=== PATIENT | female | born 1985 | race African-American/Black ===

== ENCOUNTER 2018-03-03 14:56 | Emergency (ER) | payer MEDICAID, OTHER ==
[2018-03-03] MEDS ORDERED: SODIUM CHLORIDE 0.9% 1,000 ML IV ONE (15:43)
[2018-03-03] MEDS ORDERED: ONDANSETRON 4 MG/2 ML VIAL IVP STA (15:43)
[2018-03-03] MEDS ORDERED: KETOROLAC 60 MG/2 ML VIAL IVP STA (15:43)
[2018-03-03 15:45] LABS: BILIRUBIN,URINE NEGATIVE (NEGATIVE); GLUCOSE, URINE (UA) NEGATIVE (NEGATIVE); KETONES,URINE (UA) NEGATIVE (NEGATIVE); LEUKOCYTE ESTERASE, URINE NEGATIVE (NEGATIVE); NITRITE,URINE NEGATIVE (NEGATIVE); OCCULT BLOOD,URINE SMALL (NEGATIVE); PROTEIN,URINE NEGATIVE (NEGATIVE); UROBILINOGEN,URINE 0.2 (NORMAL) E.U./dL (NORMAL)
--- NOTE | 2018-03-03 15:45 | ED Physician Documentation ---
PD HPI ABD PAIN - Stated complaint Stated Complaint: STOMACH PX/VOMITING - Chief complaint Chief Complaint: Abd Pain - History obtained from History obtained from: Patient - History of Present Illness Timing - onset: How many days ago (2) Timing - duration: Days (2) Timing - details: Gradual onset, Waxing and waning Pain level max: 7 Pain level now: 6 Quality: Aching, Pain Location: Other (R pelvic) Radiation: Other (non-radiating) Improved by: Other (nothing) Worsened by: Other (palpation) Associated symptoms: Nausea (chronic, unchanged.). No: Fever, Vomiting, Hematemesis, Diarrhea, Dizzy, Near syncope / syncope, Vaginal bleeding, Vaginal dc Similar symptoms before: Has not had sx before Recently seen: Not recently seen - Additional information Additional information: LMP 1.5 weeks ago. Review of Systems Constitutional: denies: Fever, Chills Nose: denies: Rhinorrhea / runny nose, Congestion Throat: denies: Sore throat Respiratory: denies: Cough GI: denies: Nausea, Vomiting, Diarrhea Skin: denies: Rash Musculoskeletal: denies: Neck pain, Back pain Neurologic: denies: Headache PD PAST MEDICAL HISTORY - Past Medical History Past Medical History: Yes Cardiovascular: Hypertension, High cholesterol - Past Surgical History Past Surgical History: No - Present Medications Home Medications: Ambulatory Orders Medication Instructions Recorded Confirmed Atorvastatin [Lipitor] 10 mg DAILY 03/03/18 03/03/18 Lansoprazole [Prevacid] 30 mg DAILY 03/03/18 03/03/18 Losartan [Cozaar] 100 mg DAILY 03/03/18 03/03/18 Meloxicam [Mobic] 15 mg PO DAILY PRN #20 tablet 03/03/18 - Allergies Allergies/Adverse Reactions: Allergies Allergy/AdvReac Type Severity Reaction Status Date / Time Sulfa (Sulfonamide AdvReac Severe Hallucinati Verified 03/03/18 15:18 Antibiotics) ons - Living Situation Living Situation: reports: With family Living Arrangement: reports: At home - Social History Does the pt smoke?: No Does the pt have substance abuse?: No - Family History Family history: reports: Non contributory PD ED PE NORMAL - Vitals Vital signs reviewed: Yes - General General: Alert and oriented X 3, No acute distress - HEENT HEENT: Moist mucous membranes - Neck Neck: Supple, no meningeal sign - Cardiac Cardiac: RRR - Respiratory Respiratory: No respiratory distress, Clear bilaterally - Abdomen Abdomen: Soft, Non distended, Other (mild TTP R low pelvic. no tenderness at McBurney's point. no peritoneal signs) - Female Female : Pt declined - Derm Derm: Warm and dry - Neuro Neuro: Alert and oriented X 3 - Psych Psych: Normal mood, Normal affect Results - Vitals Vitals: Vital Signs - 24 hr 03/03/18 03/03/18 15:12 18:06 Temperature 36.4 C L Heart Rate 95 81 Respiratory 19 16 Rate Blood Pressure 165/101 H 144/90 H O2 Saturation 97 98 Oxygen O2 Source Room air - Labs Labs: Laboratory Tests 03/03/18 03/03/18 03/03/18 15:00 15:34 15:34 WBC 7.5 RBC 4.47 Hgb 13.4 Hct 39.6 MCV 88.6 MCH 29.9 MCHC 33.7 RDW 13.6 Plt Count 325 MPV 8.3 Neut # (Auto) 4.7 Lymph # (Auto) 2.2 [place] # (Auto) 0.4 Eos # (Auto) 0.1 Baso # (Auto) 0.1 Absolute Nucleated RBC 0.00 Nucleated RBC % 0.1 Sodium 138 Potassium 3.6 Chloride 106 Carbon Dioxide 24 Anion Gap 8.0 BUN 11 Creatinine 0.8 Estimated GFR (MDRD) 100 Glucose 102 H Calcium 8.9 Total Bilirubin 0.2 AST 26 ALT 29 Alkaline Phosphatase 71 Total Protein 7.3 Albumin 4.1 Globulin 3.2 Albumin/Globulin Ratio 1.3 Lipase 24 Urine Color YELLOW Urine Clarity CLEAR Urine pH 6.0 Ur Specific Agar 1.025 Urine Protein NEGATIVE Urine Glucose (UA) NEGATIVE Urine Ketones NEGATIVE Urine Occult Blood SMALL H Urine Nitrite NEGATIVE Urine Bilirubin NEGATIVE Urine Urobilinogen 0.2 (NORMAL) Ur Leukocyte Esterase NEGATIVE Urine RBC 0-5 Urine WBC 0-3 Ur Squamous Epith Cells NONE SEEN Urine Bacteria None Seen Ur Microscopic Review INDICATED Urine Culture Comments NOT INDICATED Urine HCG, Qual NEGATIVE - Rads (name of study) pelvic US Radiology: Prelim report reviewed, EMP read contemporaneously, See rad report ( Normal pelvic ultrasound. ) PD MEDICAL DECISION MAKING - ED course Complexity details: reviewed results, re-evaluated patient (Soft nontender nondistended on serial exam), considered differential, d/w patient ED course: Patient is a 32-year-old female presents to the emergency department with right pelvic pain. No acute findings on ultrasound other than a dominant R follice and small amount of free fluid. Pain well controlled in the emergency department after a single dose of Toradol. We will continue supportive care and follow-up with her doctor. No evidence of appendicitis. No evidence of ovarian torsion. Patient counseled regarding signs and symptoms for which I believe and urgent re-evaluation would be necessary. Patient with good understanding of and agreement to plan and is comfortable going home at this time This document was made in part using voice recognition software. While efforts are made to proofread this document, sound alike and grammatical errors may occur. - Sepsis Event Vital Signs: Vital Signs - 24 hr 03/03/18 03/03/18 15:12 18:06 Temperature 36.4 C L Heart Rate 95 81 Respiratory 19 16 Rate Blood Pressure 165/101 H 144/90 H O2 Saturation 97 98 Oxygen O2 Source Room air Departure - Departure Disposition: 01 Home, Self Care Clinical Impression: Pelvic pain Condition: Good Instructions: ED Pelvic Pain [facility] Follow-Up: your,doctor in 1 week [Other] Prescriptions: Meloxicam [Mobic] 15 mg PO DAILY PRN #20 tablet PRN Reason: pain Comments: Return if you worsen. The cause of your symptoms is unclear, but may be related to a ruptured ovarian cyst. Discharge Date/Time: 03/03/18 18:56
[2018-03-03 15:49] LABS: CLARITY,URINE CLEAR (CLEAR); HCG UR QUAL NEGATIVE
[2018-03-03 15:50] LABS: BASOPHILS # (AUTO) 0.1 10^3/uL (0.0-0.1); EOSINOPHILS # (AUTO) 0.1 10^3/uL (0.0-0.7); EOSINOPHILS % (AUTO) 0.9 %; HGB - HEMOGLOBIN 13.4 g/dL (12.0-16.0); LYMPHOCYTES # (AUTO) 2.2 10^3/uL (1.5-3.5); LYMPHOCYTES % (AUTO) 29.7 %; MEAN CORPUSCULAR HEMOGLOBIN 29.9 pg (27.0-31.0); MEAN CORPUSCULAR HGB CONC 33.7 g/dL (32.0-36.0); MEAN CORPUSCULAR VOLUME 88.6 fL (81.0-99.0); MEAN PLATELET VOLUME 8.3 fL (7.9-10.8); MONOCYTES # (AUTO) 0.4 10^3/uL (0.0-1.0); MONOCYTES % (AUTO) 5.7 %; NEUTROPHILS # (AUTO) 4.7 10^3/uL (1.5-6.6); NEUTROPHILS % (AUTO) 62.7 %; PLT - PLATELET COUNT 325 10^3/uL (130-450); RED BLOOD COUNT 4.47 10^6/uL (4.20-5.40); RED CELL DISTRIBUTION WIDTH 13.6 % (12.0-15.0); WHITE BLOOD COUNT 7.5 x10^3/uL (4.8-10.8)
[2018-03-03 16:02] LABS: ALBUMIN 4.1 g/dL (3.2-5.5); ALBUMIN/GLOBULIN RATIO 1.3 (1.0-2.2); BILIRUBIN,TOTAL 0.2 mg/dL (0.2-1.0); CALCIUM 8.9 mg/dL (8.5-10.3); CREATININE 0.8 mg/dL (0.4-1.0); TOTAL PROTEIN 7.3 g/dL (6.7-8.2)
[2018-03-03 16:10] LABS: BACTERIA,URINE None Seen /HPF (None Seen); RBC,URINE 0-5 /HPF (0-5); SQUAMOUS EPITHELIAL CELL,UR NONE SEEN (<= Few)
[2018-03-03 18:07] VITALS: BP 144/90
--- NOTE | 2018-03-03 18:08 | Ultrasound Report ---
Reason: R pelvic pain Procedure Date: 03/03/2018 Accession Number: [id number] / [id number] Procedure: US - Pelvic w/Transvag+Doppler Comp CPT Code: FULL RESULT: EXAM: PELVIC ULTRASOUND EXAM DATE: 03/03/2018 05:34 PM. CLINICAL HISTORY: Right pelvic pain. COMPARISON: None. TECHNIQUE: Realtime transabdominal pelvic scan performed to identify the uterus and adnexa and as an overview of other pelvic structures, followed by transvaginal scan to provide greater detail of the uterus and adnexa, with static image documentation. FINDINGS: Uterus: 9.1 x 4.2 x 5.5 cm, volume 109 cc. Anteverted position. Normal overall size and echotexture. Masses: None. Endometrium: 9 mm. Small endometrial cyst noted 0.6 x 0.4 x 0.4 cm. Cervix: Unremarkable. Right Ovary: 4.8 x 2.9 x 2.6 cm, volume 18.9 cc. Normal echotexture and blood flow. Dominant follicle measures 1.7 x 1.4 x 1.2 cm. Left Ovary: 4.3 x 2.7 x 2.8 cm, volume 17 cc. Normal echotexture and blood flow. Free Fluid: Trace amount, likely physiologic. Other: None. IMPRESSION: Normal pelvic ultrasound. RADIA
== END 2018-03-03 18:56 | disposition home or self-care (01) ==
LOC: ED 14:56
DX: R10.2 Pelvic and perineal pain (principal); N83.00 Follicular cyst of ovary, unspecified side; I10 Essential (primary) hypertension
CPT/HCPCS: 36415; 76830; 76856; 80053; 81001; 81003; 81025; 83690; 85025; 87086; 93975; 96361; 96374; 96375; 99283

== ENCOUNTER 2018-05-29 08:22 | Emergency (ER) | payer MEDICAID ==
[2018-05-29 09:18] LABS: HCG,QUALITATIVE BLOOD NEGATIVE
--- NOTE | 2018-05-29 09:43 | ED Physician Documentation ---
History of Present Illness - Stated complaint Stated Complaint: FATIGUE/CONFUSION - Chief complaint Chief Complaint: General - Additonal information Additional information: hx from pt 33 f hx HTN HLD to ED with faitgue and confusion for about 2 weeks sleeping all the time no new meds no travel no sick contacts works as security at [employer] no fever cough NVD urinary sx no WOO CP AP took home HCG and ti was neg concern for CO poisoning Review of Systems Constitutional: denies: Fever, Chills Throat: denies: Sore throat Cardiac: denies: Chest pain / pressure Respiratory: denies: Dyspnea GI: denies: Abdominal Pain, Vomiting, Diarrhea, Bloody / black stool : denies: Now EGA Neurologic: reports: Generalized weakness Endocrine: denies: Easy bruising / bleeding Immunocompromised: denies: Immunocompromised PD PAST MEDICAL HISTORY - Past Medical History Cardiovascular: Hypertension, High cholesterol Respiratory: None Neuro: None Endocrine/Autoimmune: None GI: Cholelithiasis, Other FRONT END DEVELOPER DESIGNER: None : None HEENT: None, Other Psych: None, Other Musculoskeletal: None Derm: None Other Past Medical History: IBS - Past Surgical History Past Surgical History: No General: Cholecystectomy, Colonoscopy Ortho: Other HEENT: Tonsil/Adenoidectomy - Present Medications Home Medications: Ambulatory Orders Medication Instructions Recorded Confirmed Atorvastatin [Lipitor] 10 mg DAILY 03/03/18 03/03/18 Amitriptyline [Elavil] 20 mg PO QPM 05/29/18 05/29/18 Losartan [Cozaar] 100 mg PO DAILY 05/29/18 05/29/18 Omeprazole 20 mg PO 05/29/18 Ondansetron [Zofran Odt] 4 mg PO PRN PRN 05/29/18 05/29/18 - Allergies Allergies/Adverse Reactions: Allergies Allergy/AdvReac Type Severity Reaction Status Date / Time Sulfa (Sulfonamide AdvReac Severe Hallucinati Verified 05/29/18 08:29 Antibiotics) ons - Social History Does the pt smoke?: No Smoking Status: Never smoker Does the pt drink ETOH?: Yes Does the pt have substance abuse?: No Substance Use and Type: Marijuana - POLST Patient has POLST: No PD ED PE NORMAL - Vitals Vital signs reviewed: Yes - Neck Neck: Supple, no meningeal sign - Cardiac Cardiac: RRR - Respiratory Respiratory: No respiratory distress - Abdomen Abdomen: Soft, Non tender - Derm Derm: Normal color - Extremities Extremities: No deformity - Neuro Neuro: Alert and oriented X 3 Results - Vitals Vitals: Vital Signs - 24 hr 05/29/18 05/29/18 08:24 10:33 Temperature 36.2 C L Heart Rate 97 54 L Respiratory 18 16 Rate Blood Pressure 170/100 H 143/93 H O2 Saturation 98 100 Oxygen O2 Source Room air - Labs Labs: Laboratory Tests 05/29/18 05/29/18 05/29/18 08:48 08:48 08:48 WBC 7.3 RBC 4.42 Hgb 13.3 Hct 38.4 MCV 86.9 MCH 30.0 MCHC 34.5 RDW 12.7 Plt Count 285 MPV 8.5 Neut # (Auto) 4.4 Lymph # (Auto) 2.3 [place] # (Auto) 0.3 Eos # (Auto) 0.1 Baso # (Auto) 0.0 Absolute Nucleated RBC 0.00 Nucleated RBC % 0.0 VBG Total Hgb 14.0 VBG Oxyhemoglobin 97 VBG Carboxyhemoglobin 0.5 VBG Methemoglobin 0.3 Sodium Potassium Chloride Carbon Dioxide Anion Gap BUN Creatinine Estimated GFR (MDRD) Glucose Calcium TSH Serum HCG, Qual NEGATIVE Infectious Kings Assay 05/29/18 05/29/18 05/29/18 08:48 08:48 08:48 WBC RBC Hgb Hct MCV MCH MCHC RDW Plt Count MPV Neut # (Auto) Lymph # (Auto) [place] # (Auto) Eos # (Auto) Baso # (Auto) Absolute Nucleated RBC Nucleated RBC % VBG Total Hgb VBG Oxyhemoglobin VBG Carboxyhemoglobin VBG Methemoglobin Sodium 136 Potassium 3.5 Chloride 107 Carbon Dioxide 21 Anion Gap 8.0 BUN 10 Creatinine 0.8 Estimated GFR (MDRD) 99 Glucose 157 H Calcium 8.6 TSH 1.17 Serum HCG, Qual Infectious Kings Assay NEGATIVE Departure - Departure Disposition: 01 Home, Self Care Clinical Impression: Fatigue Qualifiers: Fatigue type: unspecified Qualified Code(s): R53.83 - Other fatigue Condition: Good Instructions: ED Weakness [facility] Comments: All the tests came back reassuring You do not have carbon monoxide poisoning (but should still get your car fixed because low levels might make you sick but not be detectable by the time you got to the ER) You are not You are not anemic Your electrolytes were fine except for a slightly elevated glucose level at 157 (this wouldn't make you tired and confused but you should follow up with your PMD to get checked to make sure you aren't starting to develop diabetes) Your thyroid function is fine., And you don't have mono. I am not sure why your have felt so exhausted for the last few weeks. I am not saying nothing is wrong - an ER work up is focused on ruling out the most emergent causes of a patient's symptoms - is is very possible that if the symptoms persist or change or new symptoms develop and more testing is done by your PMD, a cause may be later identified But the ER work up has ruled out many dangerous causes of these symptoms and I think it is safe for you to go home for now and follow up with your PMD as needed if the symptoms persist change or worsen Of course come back to the ER if significantly worse Forms: Activity restrictions
[2018-05-29 09:46] LABS: BASOPHILS % (AUTO) 0.7 %; EOSINOPHILS # (AUTO) 0.1 10^3/uL (0.0-0.7); EOSINOPHILS % (AUTO) 1.7 %; HGB - HEMOGLOBIN 13.3 g/dL (12.0-16.0); LYMPHOCYTES # (AUTO) 2.3 10^3/uL (1.5-3.5); LYMPHOCYTES % (AUTO) 31.8 %; MEAN CORPUSCULAR HGB CONC 34.5 g/dL (32.0-36.0); MEAN CORPUSCULAR VOLUME 86.9 fL (81.0-99.0); MEAN PLATELET VOLUME 8.5 fL (7.9-10.8); MONOCYTES # (AUTO) 0.3 10^3/uL (0.0-1.0); MONOCYTES % (AUTO) 4.8 %; NEUTROPHILS # (AUTO) 4.4 10^3/uL (1.5-6.6); PLT - PLATELET COUNT 285 10^3/uL (130-450); RED BLOOD COUNT 4.42 10^6/uL (4.20-5.40); RED CELL DISTRIBUTION WIDTH 12.7 % (12.0-15.0); WHITE BLOOD COUNT 7.3 x10^3/uL (4.8-10.8)
[2018-05-29 09:51] LABS: CALCIUM 8.6 mg/dL (8.5-10.3); CREATININE 0.8 mg/dL (0.4-1.0)
[2018-05-29 10:34] VITALS: BP 143/93
== END 2018-05-29 10:49 | disposition home or self-care (01) ==
LOC: ED 08:22
DX: R53.83 Other fatigue (principal); R73.9 Hyperglycemia, unspecified; I10 Essential (primary) hypertension
CPT/HCPCS: 36415; 80048; 82375; 84443; 84703; 85025; 86308; 99283

== ENCOUNTER 2018-06-14 08:00 | Outpatient (CLI) | payer MEDICAID ==
[2018-06-14 13:34] LABS: BASOPHILS % (AUTO) 0.5 %; EOSINOPHILS # (AUTO) 0.1 10^3/uL (0.0-0.7); EOSINOPHILS % (AUTO) 1.4 %; HGB - HEMOGLOBIN 12.5 g/dL (12.0-16.0); LYMPHOCYTES # (AUTO) 2.2 10^3/uL (1.5-3.5); LYMPHOCYTES % (AUTO) 30.6 %; MEAN CORPUSCULAR HEMOGLOBIN 30.4 pg (27.0-31.0); MEAN CORPUSCULAR HGB CONC 34.9 g/dL (32.0-36.0); MEAN CORPUSCULAR VOLUME 87.1 fL (81.0-99.0); MEAN PLATELET VOLUME 8.7 fL (7.9-10.8); MONOCYTES # (AUTO) 0.4 10^3/uL (0.0-1.0); MONOCYTES % (AUTO) 5.2 %; NEUTROPHILS # (AUTO) 4.5 10^3/uL (1.5-6.6); NEUTROPHILS % (AUTO) 62.3 %; PLT - PLATELET COUNT 319 10^3/uL (130-450); RED BLOOD COUNT 4.11 10^6/uL (4.20-5.40); RED CELL DISTRIBUTION WIDTH 12.9 % (12.0-15.0); WHITE BLOOD COUNT 7.2 x10^3/uL (4.8-10.8)
[2018-06-14 14:12] LABS: ALBUMIN 4.2 g/dL (3.2-5.5); ALBUMIN/GLOBULIN RATIO 1.3 (1.0-2.2); ALKALINE PHOSPHATASE 69 IU/L (42-121); ALT ALANINE AMINOTRANSFERASE 25 IU/L (10-60); AST ASPARTATE AMINOTRANSFERASE 21 IU/L (10-42); BILIRUBIN,TOTAL 0.5 mg/dL (0.2-1.0); BUN - BLOOD UREA NITROGEN 14 mg/dL (6-20); CALCIUM 8.9 mg/dL (8.5-10.3); CARBON DIOXIDE - CO2 26 mmol/L (21-32); CHLORIDE 101 mmol/L (101-111); CHOL/HDL RATIO 4.5 (<4.4); CHOLESTEROL 174 mg/dL; CREATININE 0.8 mg/dL (0.4-1.0); GFR - MDRD 99 (>89); GLUCOSE 90 mg/dL (70-100); HDL CHOLESTEROL 39 mg/dL; LDL CHOLESTEROL,CALCULATED 117 mg/dL; SODIUM 137 mmol/L (135-145); TOTAL PROTEIN 7.4 g/dL (6.7-8.2); VLDL CHOLESTEROL 18 mg/dL
[2018-06-14 19:30] LABS: FOLATE 11.47 ng/mL (5.90 - >24.8); THYROID STIMULATING HORMONE 1.66 uIU/mL (0.34-5.60)
== END 2018-06-14 23:59 | disposition home or self-care (01) ==
LOC: LAB.N 08:00
PROVIDERS: ATTEND Nurse Practitioner
DX: I10 Essential (primary) hypertension (principal); E55.9 Vitamin D deficiency, unspecified; R53.83 Other fatigue
CPT/HCPCS: 36415; 80053; 80061; 82306; 82607; 82746; 83721; 84443; 85025

== ENCOUNTER 2018-06-25 11:19 | Outpatient (CLI) | payer MEDICAID ==
[2018-06-25 14:03] LABS: % IRON SATURATION 29 % (20-50); IRON 117 ug/dL (28-170); TOTAL IRON BINDING CAPACITY 402 ug/dL (250-450); TRANSFERRIN 287 mg/dL (192-382)
== END 2018-06-25 11:20 | disposition home or self-care (01) ==
LOC: LAB.N 11:19
PROVIDERS: ATTEND Nurse Practitioner
DX: D64.9 Anemia, unspecified (principal)
CPT/HCPCS: 36415; 82728; 83540; 84466

== ENCOUNTER 2018-07-05 09:51 | Outpatient (CLI) | payer MEDICAID ==
--- NOTE | 2018-07-05 14:22 | XRAY Report ---
Reason: GANGLION CYST OF LEFT VOLAR WRIST,KNEE JOINT PAIN, Procedure Date: 07/05/2018 Accession Number: [id number] / [id number] Procedure: XR - Knee 3 View RT CPT Code: FULL RESULT: EXAM: RIGHT KNEE RADIOGRAPHY EXAM DATE: 07/05/2018 10:50 AM. CLINICAL HISTORY: KNEE JOINT PAIN. COMPARISON: None. TECHNIQUE: 3 views. FINDINGS: Bones: Normal. No fractures or bone lesions. Joints: Normal. No effusion. No subluxations. Soft Tissues: Normal. No soft tissue swelling. IMPRESSION: Normal knee radiography. RADIA
--- NOTE | 2018-07-05 14:23 | XRAY Report ---
Reason: GANGLION CYST OF LEFT VOLAR WRIST,KNEE JOINT PAIN, Procedure Date: 07/05/2018 Accession Number: [id number] / [id number] Procedure: XR - Wrist 3 View LT CPT Code: FULL RESULT: EXAM: LEFT WRIST RADIOGRAPHY EXAM DATE: 07/05/2018 10:50 AM. CLINICAL HISTORY: GANGLION CYST OF LEFT VOLAR WRIST. COMPARISON: None. TECHNIQUE: 3 views. FINDINGS: Bones: Normal. No fractures or bone lesions. Joints: Normal. No subluxations. Soft Tissues: Normal. No soft tissue swelling. IMPRESSION: Normal wrist radiography. RADIA
== END 2018-07-05 09:52 | disposition home or self-care (01) ==
LOC: DI 09:51
PROVIDERS: ATTEND Nurse Practitioner
DX: M67.432 Ganglion, left wrist (principal); M25.532 Pain in left wrist; M25.561 Pain in right knee; M70.51 Other bursitis of knee, right knee

== ENCOUNTER 2018-07-05 09:54 | Outpatient (CLI) | payer MEDICAID ==
[2018-07-05] MEDS ORDERED: BARIUM SULFATE 135 ML BOTTLE PO ONE (13:21)
[2018-07-05] MEDS ORDERED: BARIUM SULFATE 148 GM POWDER PO ONE (13:21)
--- NOTE | 2018-07-05 16:17 | XRAY Report ---
Reason: GERD Procedure Date: 07/05/2018 Accession Number: [id number] / [id number] Procedure: FL - UGI KUB W/Air CPT Code: FULL RESULT: EXAM: UPPER GI SERIES EXAM DATE: 07/05/2018 10:45 AM. CLINICAL HISTORY: GERD. COMPARISONS: 07/05/2018 11:31 AM. TECHNIQUE: Routine double contrast upper gastrointestinal technique. Fluoroscopy Time: 2 minutes 2 seconds. Number of fluoroscopy images: 30. FINDINGS: Swallowing Mechanism: Normal oral phase and swallowing reflex. No episodes of tracheal penetration or aspiration evident. Esophageal Motility: Normal peristaltic stripping wave. Esophageal Mucosa: Normal. No ulcerations or masses. Gastroesophageal Junction: Small to moderate hiatal hernia. No significant reflux. Stomach: Normal gastric mucosal pattern. No ulcers identified. Duodenum: Normal duodenal mucosal pattern. No ulcers or diverticula identified. Other: None. IMPRESSION: Hiatal hernia. RADIA
== END 2018-07-05 09:55 | disposition home or self-care (01) ==
LOC: DI 09:54
PROVIDERS: ATTEND Surgery
DX: K44.9 Diaphragmatic hernia without obstruction or gangrene (principal); K21.9 Gastro-esophageal reflux disease without esophagitis; M67.432 Ganglion, left wrist; M25.532 Pain in left wrist; M25.561 Pain in right knee; M70.51 Other bursitis of knee, right knee
CPT/HCPCS: 73110; 73562; 74247; A9270

== ENCOUNTER 2018-07-26 10:26 | Day surgery (SDC) | payer MEDICAID ==
[2018-07-26] MEDS ORDERED: LACTATED RINGERS 1,000 ML IV ONE (10:37)
[2018-07-26] MEDS ORDERED: MIDAZOLAM 2 MG/2 ML VIAL IVP ONE (13:18)
[2018-07-26] MEDS ORDERED: fentaNYL 100 MCG/2 ML VIAL IVP ONE (13:18)
[2018-07-26] MEDS ORDERED: LIDO GARGLE 30 ML BOTTLE TOP ONE (13:20)
[2018-07-26] MEDS ORDERED: LIDO GARGLE 30 ML BOTTLE ONE (13:21)
[2018-07-26 14:37] VITALS: BP 109/66
[2018-07-26 15:46] LABS: HCG UR QUAL NEGATIVE
== END 2018-07-26 10:27 | disposition home or self-care (01) ==
LOC: SDS 10:26
PROVIDERS: ATTEND Internal Medicine Gastroenterology
PROC: 0DB78ZX Excision of Stomach, Pylorus, Via Natural or Artificial Opening Endoscopic, Diagnostic (ICD-10-PCS; 2018-07-26)
PROC: 0DB98ZX Excision of Duodenum, Via Natural or Artificial Opening Endoscopic, Diagnostic (ICD-10-PCS; principal; 2018-07-26 12:45)
DX: R10.11 Right upper quadrant pain (principal); K31.9 Disease of stomach and duodenum, unspecified; K58.0 Irritable bowel syndrome with diarrhea; K21.9 Gastro-esophageal reflux disease without esophagitis; E78.5 Hyperlipidemia, unspecified; I10 Essential (primary) hypertension; E66.9 Obesity, unspecified; Z68.37 Body mass index [BMI] 37.0-37.9, adult; F41.9 Anxiety disorder, unspecified; D64.9 Anemia, unspecified; E55.9 Vitamin D deficiency, unspecified; R53.83 Other fatigue; G47.00 Insomnia, unspecified; R11.0 Nausea; Z87.891 Personal history of nicotine dependence
CPT/HCPCS: 43239; 81025; A9270; J7120

== ENCOUNTER 2018-08-11 07:28 | Outpatient (CLI) | payer MEDICAID ==
[2018-08-11] MEDS ORDERED: IOVERSOL 320 50 ML VIAL ONE (07:54)
[2018-08-11] MEDS ORDERED: IOVERSOL 320 100 ML VIAL IVP ONE ×2 (07:54→09:15)
[2018-08-11] MEDS ORDERED: IOVERSOL 320 50 ML VIAL PO ONE (09:15)
--- NOTE | 2018-08-11 20:08 | CT Report ---
Reason: RUQ PAIN Procedure Date: 08/11/2018 Accession Number: [id number] / [id number] Procedure: CT - Abdomen/Pelvis W CPT Code: FULL RESULT: EXAM: CT ABDOMEN AND PELVIS EXAM DATE: 08/11/2018 09:27 AM. CLINICAL HISTORY: Right upper quadrant pain. COMPARISONS: None. TECHNIQUE: Routine helical CT imaging was performed through the abdomen and pelvis. IV contrast: 100 mL Optiray 320. Enteric contrast: Yes. Reconstructions: Coronal and sagittal. In accordance with CT protocol optimization, one or more of the following dose reduction techniques were utilized for this exam: automated exposure control, adjustment of mA and/or KV based on patient size, or use of iterative reconstructive technique. FINDINGS: Lung Bases: Clear. Liver: Subcapsular hypoattenuating lesion with ill-defined margins and heterogeneous enhancement in right hepatic lobe segment 7 measuring approximately 4.1 x 2.3 x 3.2 cm (09/04, ). Gallbladder/Bile Ducts: Post cholecystectomy. No biliary ductal dilatation. Spleen: Normal. Pancreas: Normal. Adrenal Glands: Normal. Kidneys and Ureters: Normal. No stones, hydronephrosis, or hydroureter. Peritoneal Cavity/Bowel: Trace of intrapelvic free fluid, within physiologic limits. No evidence for bowel obstruction or acute inflammatory process. The appendix is normal. No pneumoperitoneum or adenopathy. Pelvic Organs: 3.0 x 2.3 x 2.4 cm left ovarian corpus luteum cyst (, ). The bladder, uterus, and ovaries are otherwise unremarkable. Vasculature: Unremarkable. Bones: Severe degenerative disk disease at L5-S1. No acute bony abnormality. Other: None. IMPRESSION: 1. No acute inflammatory or obstructive process identified to explain abdominal pain. 2. Heterogeneously enhancing subcapsular lesion in the right hepatic lobe, possibly representing a hemangioma. Recommend definitive characterization with liver protocol MRI abdomen with/without contrast. 3. Left ovarian corpus luteum cyst, a physiologic finding indicating recent follicular rupture/ovulation. RADIA
== END 2018-08-11 07:29 | disposition home or self-care (01) ==
LOC: DI 07:28
PROVIDERS: ATTEND Internal Medicine Gastroenterology
DX: R10.11 Right upper quadrant pain (principal); K76.9 Liver disease, unspecified
CPT/HCPCS: 74177; Q9967

== ENCOUNTER 2018-08-30 07:20 | Outpatient (CLI) | payer MEDICAID ==
[2018-08-30] MEDS ORDERED: GADOBUTROL 10 MMOL/10 ML VIAL ONE (07:54)
[2018-08-30] MEDS ORDERED: GADOBUTROL 10 MMOL/10 ML VIAL IVP ONE (09:15)
--- NOTE | 2018-08-30 14:53 | MRI Report ---
Reason: HEPATIC MASS Procedure Date: 08/30/2018 Accession Number: [id number] / [id number] Procedure: MRI - Abdomen W/WO CPT Code: FULL RESULT: EXAM: MR ABDOMEN WITH AND WITHOUT CONTRAST (MR PANCREAS AND MRCP) EXAM DATE: 08/30/2018 09:16 AM. CLINICAL HISTORY: Hepatic mass. COMPARISON: ABDOMEN/PELVIS W/ 08/11/2018 9:28 AM. TECHNIQUE: Multiplanar breath-hold T1, T2, and DWI sequences obtained through the pancreas and abdomen on an MR scanner. Dedicated 2D and 3D MRCP sequences obtained through the biliary and pancreatic ducts. Images obtained before and after administration of 10 mL Gadavist intravenous contrast. Multiphase postcontrast sequences obtained through the pancreas. FINDINGS: Lung Bases: Unremarkable. Liver: The dome of the right lobe of the liver mass is T2 bright, T1 hypointense relative to liver parenchyma and demonstrates progressive nodular enhancement over time with complete hyperenhancement compared to background parenchyma on the 5 minute delay images. Hemangioma. Gallbladder: The gallbladder is partially distended and appears normal with no wall thickening or stone. Bile Ducts: No intrahepatic or extrahepatic duct dilatation. Pancreas: The pancreas appears normal with no mass. The pancreatic duct measures 2 mm in diameter and appears normal with no stone or stricture. Spleen: The spleen appears normal. Kidneys: The kidneys appear normal with no mass or hydronephrosis. Adrenals: The adrenals appear normal. Bowel: The visualized segments of the small bowel and colon appear normal with no inflammation or obstruction. Retroperitoneum: The retroperitoneal structures appear normal with no mass or lymphadenopathy. Other: None. IMPRESSION: Hemangioma. RADIA
== END 2018-08-30 07:21 | disposition home or self-care (01) ==
LOC: DI 07:20
PROVIDERS: ATTEND Nurse Practitioner
DX: D18.03 Hemangioma of intra-abdominal structures (principal)
CPT/HCPCS: 74183; A9585

== ENCOUNTER 2018-10-18 14:57 | Outpatient (CLI) | payer MEDICAID ==
--- NOTE | 2018-10-18 18:05 | MRI Report ---
Reason: L WRIST PAIN Procedure Date: 10/18/2018 Accession Number: [id number] / [id number] Procedure: MRI - Wrist LT W/O CPT Code: FULL RESULT: EXAM: LEFT WRIST MRI WITHOUT CONTRAST EXAM DATE: 10/18/2018 03:46 PM. CLINICAL HISTORY: Left wrist pain. COMPARISON: None. TECHNIQUE: Multiplanar, multisequence T1-weighted and fluid-sensitive sequences of the wrist without contrast. Other: None. FINDINGS: Bones: No fractures or subluxations. No marrow edema. No bone lesions. Cartilage: The articular cartilage is unremarkable. The triangular fibrocartilage complex is unremarkable. Ligaments: The scapholunate and lunotriquetral ligaments are intact. The visualized other intrinsic, extrinsic and collateral ligaments are unremarkable. Tendons: The extensor compartment I through and flexor tendons are unremarkable. Musculature: No edema or fatty atrophy. Other: The contents of the carpal tunnel, including the median nerve, are unremarkable. Guyons canal is unremarkable. There is an approximately 1.2 x 0.8 x 0.7 cm synovial cyst arising from the proximal aspect of the pisotriquetral joint. There is a 0.6 x 0.5 x 0.4 cm synovial cyst arising from the distal aspect of the pisotriquetral joint. Pisotriquetral joint effusion and synovial thickening is also present. The subcutaneous tissues are unremarkable. IMPRESSION: 1. Synovial cysts arising from the proximal and distal aspects of the pisotriquetral joint. Pisotriquetral joint effusion and synovitis is also present. 2. Otherwise, unremarkable MRI of the left wrist. RADIA
== END 2018-10-18 14:58 | disposition home or self-care (01) ==
LOC: DI 14:57
PROVIDERS: ATTEND Orthopaedic Surgery
DX: M25.532 Pain in left wrist (principal); M71.332 Other bursal cyst, left wrist; M65.832 Other synovitis and tenosynovitis, left forearm; M25.432 Effusion, left wrist

== ENCOUNTER 2018-10-22 08:00 | Outpatient (CLI) | payer MEDICAID | END 2018-10-22 23:59 | disposition home or self-care (01) | LOC: LAB.N 08:00 | PROVIDERS: ATTEND Physician Assistant Medical | DX: Z13.89 Encounter for screening for other disorder (principal) | CPT/HCPCS: 36415; 86762; 86787 ==

== ENCOUNTER 2018-11-07 08:03 | Day surgery (SDC) | payer MEDICAID ==
[2018-11-07] MEDS ORDERED: CELECOXIB 100 MG CAPSULE PO ONE (08:18)
[2018-11-07] MEDS ORDERED: ACETAMINOPHEN 1,000 MG/100 ML 100 ML IV ONE (08:18)
[2018-11-07] MEDS ORDERED: GABAPENTIN 400 MG CAPSULE ONE (08:18)
[2018-11-07] MEDS ORDERED: LACTATED RINGERS 1,000 ML IV ONE ×3 (08:38→11:45)
--- NOTE | 2018-11-07 08:47 | ANESTHESIA ---
Pre-Anesthesia VS, & Labs - Diagnosis chronic pelvic pain - Procedure diagnostic laparoscopy Vital Signs: Temp Pulse Resp BP Pulse Ox 36.8 C 76 18 136/93 H 100 11/07/18 08:23 11/07/18 08:23 11/07/18 08:23 11/07/18 08:23 11/07/18 08:23 Height 5 ft 8.5 in Weight (kg) 111 kg Body Mass Index 37.5 - NPO >8 hours - Is Patient ?: No - Lab Results Lab results reviewed: Yes Home Medications and Allergies Home Medications: Ambulatory Orders EPINEPHrine [Epinephrine] 0.3 mg IJ ONCE PRN 11/02/18 Hyoscyamine Sulfate 0.125 mg PO BID 11/02/18 Sucralfate 1 gm PO ACHS PRN 11/02/18 Atorvastatin [Lipitor] 10 mg PO QPM 03/03/18 Losartan [Cozaar] 100 mg PO DAILY 05/29/18 Omeprazole 20 mg PO DAILY 05/29/18 Ondansetron [Zofran Odt] 8 mg PO Q6H PRN 05/29/18 Hydrochlorothiazide 12.5 mg PO DAILY 07/25/18 Meloxicam 15 mg PO DAILY PRN 07/25/18 Propranolol [Inderal] 10 mg PO BID 07/25/18 Trazodone HCl 50 mg PO DAILY 07/25/18 EPINEPHrine [Epinephrine] 0.3 mg IJ ONCE PRN 11/02/18 Hyoscyamine Sulfate 0.125 mg PO BID 11/02/18 Sucralfate 1 gm PO ACHS PRN 11/02/18 Allergies/Adverse Reactions: Allergies Allergy/AdvReac Type Severity Reaction Status Date / Time bee venom protein (honey bee) Allergy Anaphylaxis Verified 11/02/18 14:55 Sulfa (Sulfonamide AdvReac Severe blindness Verified 11/02/18 14:56 Antibiotics) Anes History & Medical History - Anesthetic History Anesthesia Complications: reports: No previous complications Family history of Anesthesia Complications: Denies Family history of Malignant Hyperthermia: Denies - Medical History Cardiovascular: reports: Hypertension, High cholesterol Pulmonary: reports: None Gastrointestinal: reports: GERD, Other Urinary: reports: None Neuro: reports: None Musculoskeletal: reports: Chronic back pain, Other Endocrine/Autoimmune: reports: None Blood Disorders: reports: None Skin: reports: Eczema Smoking Status: Never smoker - Surgical History General: Cholecystectomy, Other Eyes Ears Nose Throat (EENT): Tonsil/Adenoidectomy Orthopedic: Other Exam General: Alert, Oriented x3, Cooperative, No acute distress Dental: Other (caps) Mouth Openin Fingerbreadth Mallampati classification: III Thyromental Distance: 4-6 cm Respiratory: Lungs clear, Normal breath sounds, No respiratory distress, No accessory muscle use Cardiovascular: Regular rate, Normal S1, Normal S2, No murmurs Plan Anesthesia Type: General Consent for Procedure(s) Verified and Reviewed: Yes Code Status: Attempt Resuscitation ASA classification: 2-Mild systemic disease Is this case an emergency?: No
[2018-11-07 08:50] LABS: HCG UR QUAL NEGATIVE
[2018-11-07] MEDS ORDERED: BUPIVACAINE 0.5%-EPI 1:200000 PF 30 ML VIAL ONE (08:57)
--- NOTE | 2018-11-07 09:09 | OPERATIVE REPORT ---
Operative Report - Other Other Information/Narrative: Preop: FARIDEH 3 Postop: same Procedure: LEEP and ECC Surg: Erasmo Assist: none Anesth: general EBL: 10 IVF: 400 UOP n/a Specimens: Leep x3, ECC Complications: none Disposition: PACU to home.
[2018-11-07] MEDS ORDERED: BUPIVACAINE 0.5%-EPI 1:200000 PF 30 ML VIAL SUBQ ONE ×2 (10:15)
[2018-11-07] MEDS ORDERED: SODIUM CHLORIDE 0.9% 10 ML VIAL IV ONE (11:10)
[2018-11-07] MEDS ORDERED: ONDANSETRON 4 MG/2 ML VIAL IVP ONE (11:10)
[2018-11-07] MEDS ORDERED: ROCURONIUM 50 MG/5 ML VIAL IVP ONE (11:10)
[2018-11-07] MEDS ORDERED: NEOSTIGMINE 1 MG/1 ML 10 ML MDV IVP ONE (11:10)
[2018-11-07] MEDS ORDERED: PROPOFOL 200 MG/20 ML VIAL IVP ONE (11:10)
[2018-11-07] MEDS ORDERED: fentaNYL 100 MCG/2 ML VIAL IVP ONE (11:10)
[2018-11-07] MEDS ORDERED: DEXAMETHASONE 4 MG/ML VIAL IVP ONE (11:10)
[2018-11-07] MEDS ORDERED: LIDOCAINE-MPF 2% 5 ML VIAL IM ONE (11:10)
[2018-11-07] MEDS ORDERED: GLYCOPYRROLATE 1 MG/5 ML VIAL IVP ONE (11:10)
[2018-11-07] MEDS ORDERED: MIDAZOLAM 2 MG/2 ML VIAL IVP ONE (11:10)
[2018-11-07] MEDS ORDERED: PHENYLEPHRINE 10 MG/ML VIAL IV ONE (11:10)
[2018-11-07] MEDS ORDERED: ONDANSETRON 4 MG/2 ML VIAL IVP PRN (11:54)
[2018-11-07] MEDS ORDERED: oxyCODONE 5 MG TABLET PO PRN (11:54)
[2018-11-07] MEDS ORDERED: HYDROmorphone 0.5 MG/0.5 ML SYRINGE IVP PRN (11:54)
--- NOTE | 2018-11-07 12:00 | OPERATIVE REPORT ---
Operative Report - Other Other Information/Narrative: Preop: CPP, left adnexal mass Postop: CPP, left hydrosalpinx, left ovarian cyst x2, endometriosis lesions on bladder peritoneum, left ovary adherent to left posterior broad ligament, cul de sac free, filmy adhesions from sigmoid to cul de sac. Procedure: LSC left salpingectomy, cystectomy; resection of endometriosis Surg: Erasmo Assist: Phil Anesth: general EBL 20cc IVF 1000cc UOP 50cc Complic: none Dispo: PACU -->home Specimens: left tube, left cyst alva Findings: see postop diagnosis.
[2018-11-07] MEDS ORDERED: ONDANSETRON 4 MG/2 ML VIAL ONE (12:14)
[2018-11-07 13:38] VITALS: BP 118/73
[2018-11-07] MEDS ORDERED: SCOPOLAMINE PATCH TOP ONE (13:39)
--- NOTE | 2018-11-07 18:17 | OPERATIVE REPORT ---
DATE OF SERVICE: 11/07/2018 Physician: Tonie Zimmerman MD PREOPERATIVE DIAGNOSES 1. Chronic pelvic pain. 2. Left adnexal mass. POSTOPERATIVE DIAGNOSES 1. Chronic pelvic pain. 2. Endometriosis. 3. Left hydrosalpinx. 4. Left ovarian cyst. 5. Adhesions from the sigmoid to the cul-de-sac, and from the left ovary to the left posterior broad ligament. PROCEDURE PERFORMED: Laparoscopic left salpingectomy, left ovarian cystectomy, and resection of endometriosis. SURGEON: Tonie Zimmerman MD IMMIGRATION MANAGER: Jennifer Parada MD ANESTHESIA: General. ESTIMATED BLOOD LOSS: 20 mL IV FLUIDS: 1000 mL URINE OUTPUT: 50 mL COUNTS: Correct x2. COMPLICATIONS: None apparent. DISPOSITION: Stable to the recovery room. PROPHYLAXIS: Sequential compression devices and WYATT hose to the bilateral lower extremities. No antibiotics indicated. SPECIMENS: Left fallopian tube and cyst alva were sent to pathology. FINDINGS: Left hydrosalpinx with a tortuous tubal course. The tube was adherent to the ovary and to itself. The left ovary was enlarged with 2 main cysts seen. One had thin brown colored fluid within it, consistent with either a hemorrhagic corpus luteum cyst or a new endometrioma. The other one had serous fluid only, consistent with a likely follicle. She had small gun powder endometriosis lesions seen on her bladder peritoneum. Her cul-de-sac had filmy adhesions from the sigmoid to the cul-de-sac, but all in all, it was mostly free of adhesive disease or of endometriosis. The left ovary was adherent to the left posterior broad ligament along 40% of its surface area. This was a dense adhesion. The patient's right ovary and fallopian tube appeared to be normal. The fimbriated ends of the tube were seen. DESCRIPTION OF PROCEDURE: The patient was brought to the operating room, where she was induced with general anesthesia. She was placed in low lithotomy in [facility]. Her arms were tucked at her sides. Bimanual examination revealed an axial uterus. She was prepped and draped in the usual sterile fashion. Speculum was inserted into the vaginal canal. A single-tooth tenaculum was applied to the anterior lip of the cervix. The HUMI uterine manipulator was inserted into the uterine cavity, and the balloon was inflated. The tenaculum and speculum were removed. A Larson catheter had been placed during the vaginal prep. An OG tube was placed by anesthesia. I chose not to go through the umbilicus because the patient had a prior umbilical herniorrhaphy. All laparoscopy incisions were made with #11 blades after infiltration of 0.5% Marcaine with epinephrine. All trocars were inserted under direct visualization. Only 5 mm trocars were placed. The first incision was at Chowdary's point in the nipple line 3 cm inferior to the inferior costal margin. The abdominal tissue was tented upwards while the Visiport was inserted into the peritoneal cavity. The peritoneum could not be breeched with a normal sized trocar and so an extra long was used in this area. The abdomen was insufflated to a level of 15 mmHg. The contents of the abdomen and pelvis were visualized with the assistance of Trendelenburg. Two lateral trocars were inserted approximately 3 cm inferior to and 2 cm medial to the anterior superior iliac spine on both sides. The distal end of the fallopian tube could not be identified. It was clearly a torturous hydrosalpinx though, and so the salpingectomy was started at the level of the cornua. All dissection was performed with a LigaSure. The fallopian tube was divided from the mesosalpinx down to the area around the IP ligament. It was amputated at that level. The fallopian tube was removed through the trocar. The ovary was densely adherent to the posterior leaf of the broad ligament along most of the posterior surface area. This could not be just dissected down because there was no visible plane between the areas. Posteriorly, there was a little bit of filmy adhesive disease between the sigmoid and the uterosacral ligaments, and this was transected. While trying to free the ovary from its adhesions to the peritoneum and to the fallopian tube, the chocolate cyst was entered. Later on in the dissection, a serous cyst was opened. A small strip of the serous cyst wall was removed. The remaining cyst wall appeared to be corpus luteal and so the rest of the cyst wall was not removed. In the chocolate cyst, as much of the cyst wall as possible was removed, but not all of it could be identified. There was some bleeding internally in the ovarian stroma around the level of the hilum. This was gently cauterized with a LigaSure, but some ongoing oozing was present. Surgicel was packed into the ovarian cavity, and good hemostasis was noted. The endometriosis on the bladder peritoneum was grasped with an Allis clamp, and the peritoneum was identified. That portion of the peritoneum was excised with scissors. Again, there was a small amount of bleeding, and so Surgicel was applied. Hemostasis was good. The pressure was brought down to 9, and it was still good. All of the lids were taken off of the trocars, and 5 big breaths were given. The skin was closed with running subcuticular sutures of 4-0 Monocryl. Dermabond was then applied. The uterine manipulator was removed, as was the Larson catheter. The blood and Betadine was washed from her belly, and she was returned to the supine position prior to waking. TD: 11/07/2018 15:02 LAM
== END 2018-11-07 08:04 | disposition home or self-care (01) ==
LOC: SDS 08:03
PROVIDERS: ATTEND Obstetrics & Gynecology
PROC: 0UB14ZZ Excision of Left Ovary, Percutaneous Endoscopic Approach (ICD-10-PCS; 2018-11-07)
PROC: 0DBW4ZZ Excision of Peritoneum, Percutaneous Endoscopic Approach (ICD-10-PCS; 2018-11-07)
PROC: 0DNW4ZZ Release Peritoneum, Percutaneous Endoscopic Approach (ICD-10-PCS; 2018-11-07)
PROC: 0UT64ZZ Resection of Left Fallopian Tube, Percutaneous Endoscopic Approach (ICD-10-PCS; principal; 2018-11-07 09:30)
DX: N80.3 Endometriosis of pelvic peritoneum (principal); N80.1 Endometriosis of ovary; N73.6 Female pelvic peritoneal adhesions (postinfective); I10 Essential (primary) hypertension; K21.9 Gastro-esophageal reflux disease without esophagitis; E66.9 Obesity, unspecified; Z68.37 Body mass index [BMI] 37.0-37.9, adult; E78.5 Hyperlipidemia, unspecified; F41.9 Anxiety disorder, unspecified; M47.817 Spondylosis without myelopathy or radiculopathy, lumbosacral region; G89.29 Other chronic pain; K58.9 Irritable bowel syndrome, unspecified; D18.03 Hemangioma of intra-abdominal structures; Z87.891 Personal history of nicotine dependence; Z87.440 Personal history of urinary (tract) infections
CPT/HCPCS: 58661; 58662; 81025; A9270; J0131; J3490; J7120